=== PATIENT | male | born 1985 | race Two or more races ===

== ENCOUNTER 2016-09-14 14:26 | Emergency (ER) | payer OTHER ==
[~2016-09-14] VITALS: Ht 170.2 cm; Wt 86.2 kg
[2016-09-14] MEDS ORDERED: PROMETHAZINE HCL 25 MG/ML 1ML IV ONE (16:15)
[2016-09-14] MEDS ORDERED: HYDROmorphone HCL 2 MG/ML VL IV ONE (16:15)
[2016-09-14] MEDS ORDERED: NEOMYCIN-BACITRACIN-POLYM 15GM TOP OINT TOP ONE (18:45)
[2016-09-14 20:38] VITALS: BP 131/78
== END 2016-09-14 20:45 | disposition home or self-care (01) ==
LOC: ER 14:26 → EDBD 14:26 → ER 20:45
DX: S12.601A Unspecified nondisplaced fracture of seventh cervical vertebra, initial encounter for closed fracture (principal); S20.211A Contusion of right front wall of thorax, initial encounter; S09.90XA Unspecified injury of head, initial encounter; S80.812A Abrasion, left lower leg, initial encounter; S80.811A Abrasion, right lower leg, initial encounter; F17.210 Nicotine dependence, cigarettes, uncomplicated; E11.9 Type 2 diabetes mellitus without complications; V28.4XXA Motorcycle driver injured in noncollision transport accident in traffic accident, initial encounter; Y93.89 Activity, other specified; Y99.8 Other external cause status; Y92.410 Unspecified street and highway as the place of occurrence of the external cause
CPT/HCPCS: 70450; 71020; 72125; 73610; 82962; 96374; 96375; 99284; J1170; J2550